=== PATIENT | female | born 1995 ===

== ENCOUNTER 2018-03-31 16:08 | Emergency (ER) | payer OTHER ==
[2018-03-31 16:42] VITALS: RESP 18
[2018-03-31] MEDS ORDERED: Sodium Chloride 0.9% 1,000 ML IV STA (16:53)
[2018-03-31 17:27] LABS: BASO # 0.01 K/mm3 (0.0-2.0); BASO % 0.1 % (0.0-3.0); EOS # 0.2 (0.0-0.7); EOS % 1.8 % (1.5-5.0); GRAN # 8.59 (1.4-6.5); GRAN % 78.3 % (50.0-68.0); HEMOGLOBIN 13.2 g/dL (12.0-16.0); LYMPH # 1.6 (1.2-3.4); LYMPH % 14.9 % (22.0-35.0); MEAN CELL VOLUME 89.3 fl (80.0-105.0); MEAN CORPUSCULAR HEMOGLOBIN 31.4 pg (25.0-35.0); MEAN CORPUSCULAR HGB CONC 35.2 g/dl (31.0-37.0); MEAN PLATELET VOLUME 10.6 fl (7.0-11.0); MONO # 0.5 (0.1-0.6); MONO % 4.9 % (1.0-6.0); RBC 4.2 10^6/uL (3.5-6.1); RED CELL DISTRIBUTION WIDTH 12.3 % (11.5-14.5)
[2018-03-31 17:29] LABS: URINE BILIRUBIN NEGATIVE (NEGATIVE); URINE BLOOD NEGATIVE (NEGATIVE); URINE GLUCOSE (UA) NEGATIVE (NEGATIVE); URINE LEUKOCYTE ESTERASE SMALL Leu/uL (NEGATIVE); URINE PROTEIN NEGATIVE mg/dL (<30 mg/dL); URINE UROBILINOGEN 0.2 E.U./dL (<1 E.U./dL)
--- NOTE | 2018-03-31 17:29 | ED PDOC ---
Arrival/HPI - General Chief Complaint: Female Genitourinary Time Seen by Provider: 03/31/18 16:51 Historian: Patient - History of Present Illness Narrative History of Present Illness (Text): 03/31/18 17:09 23yo female with no pmhx who present to ED for evaluation of her fetus s/p having vaginal spotting last night. states she tried to get outpt US today and was told she need a prescription. States her OB was not in the office today and she plan to go see him tomorrow. she denies any current vaginal bleeding, Denies abdominal pain, nausea, vomiting, fever, chills, Past Medical History - Provider Review Nursing Documentation Reviewed: Yes - Infectious Disease Hx of Infectious Diseases: None - Psychiatric Hx Substance Use: No - Anesthesia Hx Anesthesia: No Family/Social History - Physician Review Nursing Documentation Reviewed: Yes Family/Social History: Unknown Family HX Smoking Status: Unknown If Ever Smoked Hx Alcohol Use: No Hx Substance Use: No Allergies/Home Meds Allergies/Adverse Reactions: Allergies No Known Allergies Allergy (Verified 03/31/18 16:43) Review of Systems - Physician Review All systems were reviewed & negative as marked: Yes - Review of Systems Constitutional: Normal Eyes: Normal ENT: Normal Respiratory: Normal Cardiovascular: Normal Gastrointestinal: Normal Genitourinary Female: Vaginal Bleeding Musculoskeletal: Normal Skin: Normal Neurological: Normal Endocrine: Normal Hemo/Lymphatic: Normal Psychiatric: Normal Physical Exam Vital Signs Reviewed: Yes Vital Signs Temp Pulse Resp BP Pulse Ox 03/31/18 16:38 99.3 F 98 H 18 112/78 99 Temperature: Afebrile Blood Pressure: Normal Pulse: Regular Respiratory Rate: Normal Appearance: Positive for: Well-Appearing, Non-Toxic, Comfortable Pain Distress: None Mental Status: Positive for: Alert and Oriented X 3 - Systems Exam Head: Present: Atraumatic, Normocephalic Pupils: Present: PERRL Extroacular Muscles: Present: EOMI Conjunctiva: Present: Normal Mouth: Present: Moist Mucous Membranes Neck: Present: Normal Range of Motion Respiratory/Chest: Present: Clear to Auscultation, Good Air Exchange. No: Respiratory Distress, Accessory Muscle Use Cardiovascular: Present: Regular Rate and Rhythm, Normal S1, S2. No: Murmurs Abdomen: No: Tenderness, Distention, Peritoneal Signs Back: Present: Normal Inspection Upper Extremity: Present: Normal Inspection. No: Cyanosis, Edema Lower Extremity: Present: Normal Inspection. No: Edema Neurological: Present: GCS=15, CN II-XII Intact, Speech Normal Skin: Present: Warm, Dry, Normal Color. No: Rashes Psychiatric: Present: Alert, Oriented x 3, Normal Insight, Normal Concentration Medical Decision Making ED Course and Treatment: 03/31/18 23:53 Pt in ED for stated history. She denies any pain/vaginal bleeding in ED Labs Transvaginal Us She declined IV fluid in ED Her lab result reviewed and pt have UTI. Treated with Macrobid age Us Impression: Single living fetus with a composite sonographic age of 13 weeks 5 days. Estimated heart rate 165 beats per min. Advise an anomaly screen at 16-18 weeks gestational age. Result was DW the pt and she was referred to her OB - RAD Interpretation Radiology Orders: 03/31/18 16:52 TRANSVAGINAL [US] Stat Disposition/Present on Arrival - Present on Arrival Any Indicators Present on Arrival: No History of DVT/PE: No History of Uncontrolled Diabetes: No Urinary Catheter: No History of Decub. Ulcer: No History Surgical Site Infection Following: None - Disposition Have Diagnosis and Disposition been Completed?: Yes Diagnosis: UTI (urinary tract infection), Disposition: HOME/ ROUTINE Disposition Time: 19:00 Patient Plan: Discharge Condition: STABLE Discharge Instructions (ExitCare): Urinary Tract Infections in Adults Additional Instructions: Follow up with your OB Return to ED for any new or worsening symptoms Prescriptions: Nitrofurantoin Macrocrystals [Macrobid] 100 mg PO BID #14 cap Referrals: FAMILY PROVIDER,NO [Primary Care Provider] - Follow up with primary Mani Acosta MD [Staff Provider] - Follow up with primary Forms: Sponge (Kyrgyz)
[2018-03-31 17:35] LABS: URINE APPEARANCE CLEAR (CLEAR); URINE COLOR LIGHT YELLOW (YELLOW)
[2018-03-31 17:36] LABS: INR 1.01; PROTHROMBIN TIME 11.5 SECONDS (9.4-12.5)
[2018-03-31 17:36] LABS: HCG,QUALITATIVE URINE POSITIVE (NEGATIVE)
[2018-03-31 17:41] LABS: ALB/GLOB RATIO 1.3 (1.1-1.8); ALBUMIN 4.1 g/dL (3.0-4.8); ALT/SGPT 17 U/L (7-56); AST/SGOT 21 U/L (14-36); BLOOD UREA NITROGEN 8 mg/dL (7-21); CALCIUM 9.1 mg/dL (8.4-10.5); GFR NON-AFRICAN AMERICAN > 60
[2018-03-31 17:44] LABS: URINE RBC 0 - 2 /hpf (0-2)
[2018-03-31 17:45] LABS: URINE BACTERIA MOD (NEG); URINE EPITHELIAL CELLS MANY /hpf (0-5)
[2018-03-31 18:14] VITALS: O2SAT 100
[2018-03-31 18:51] VITALS: BP 110/60; PULSE 83; TEMP 97.6
--- NOTE | 2018-03-31 18:56 | US ---
Indication: age Comparison: None available Technique: Real-time ultrasound was performed through the pelvis. Findings: There is a single living fetus in variable presentation. Amniotic fluid volume is within normal limits. Posterior fundal placenta. The placenta is not previa. The right ovary measures approximately 3.4 x 2.3 x 2.0 cm. 2.4 cm probable corpus luteal cyst, right ovary. Blood flow is demonstrated to the right ovary. The left ovary is not visualized. Cervix length measures approximately 4.0 cm. Measurements and calculations: Fetus has a composite sonographic age of 13 weeks 5 days. This calculation is based on the biparietal diameter, head circumference, abdominal circumference, and femur length. Estimated heart rate 165 beats per min. Impression: Single living fetus with a composite sonographic age of 13 weeks 5 days. Estimated heart rate 165 beats per min. Advise an anomaly screen at 16-18 weeks gestational age.
== END 2018-03-31 19:23 | disposition home or self-care (01) ==
LOC: ED 16:08
DX: O23.41 Unspecified infection of urinary tract in pregnancy, first trimester (principal); Z3A.13 13 weeks gestation of pregnancy